=== PATIENT | male | born 1975 | race Caucasian/White ===

== ENCOUNTER 2020-11-16 08:45 | Emergency (ER) | payer OTHER, SELFPAY ==
--- NOTE | 2020-11-16 08:46 | ED.SKABFB ---
HPI - Skin/Abscess/Foreign Bdy General Chief complaint: Skin/Abscess/Foreign Body Stated complaint: left hand sore not healing Time Seen by Provider: 11/16/20 09:44 Source: patient and RN notes reviewed Mode of arrival: ambulatory Limitations: no limitations History of Present Illness HPI narrative: 45-year male with a history of rheumatoid arthritis with concern for a wound that is not healing. Reports 2 weeks ago he hit the second digit of the left hand with a hammer causing a blister. Reports the blister began to heal and then he accidentally hit the blister again while working causing it to split open. Reports since then is beginning larger, redder, painful. Reports he has been keeping it covered with antibiotic ointment and a Band-Aid. He denies decreased strength, sensation, range of motion in the digit. MD complaint: other (Wound) Related Data Home Medications Medication Instructions Recorded Confirmed adalimumab [Humira Pen] See Rx Instructions .ROUTE .COMPLEX 08/05/19 11/16/20 methotrexate 2.5 mg/mL oral See Rx Instructions .ROUTE .COMPLEX 08/25/19 11/16/20 solution folic acid 1 mg PO DAILY 11/16/20 11/16/20 Allergies Allergy/AdvReac Type Severity Reaction Status Date / Time cranberry Allergy Unknown HIVES Verified 11/16/20 09:36 Review of Systems Review of Systems: Narrative: CONSTITUTIONAL: Denies malaise, chills, sweats, or fever. CARDIOVASCULAR: Denies chest pain, palpitations, or edema. RESPIRATORY: Denies cough or dyspnea. SKIN: Reports a wound on the second digit of his left hand is not healing. MUSCULOSKELETAL: Denies myalgia. Denies musculoskeletal pain NEUROLOGIC: Denies numbness, weakness All systems reviewed & are unremarkable except as noted in HPI and below PMFSH Past Medical History Medical History (Updated 11/16/20 @ 09:52 by Rose Prince NP) Immunocompromised Rheumatoid arthritis Family History Family History Father Family history of alcoholism Grandparent Diabetes mellitus Social History Social History (Updated 10/18/20 @ 09:17 by Amanda Mckoy MA) Smoking packs per day: 1 Smoking cigarettes per day: 20.0 Years smoked: 22 Smoking pack-years: 22.00 Smoking status: Former smoker Tobacco type: cigarettes Second hand tobacco smoke exposure: No Smoking end date: 07/14/14 Alcohol intake: current Drinks per week: 9 Substance use: never Substance use type: does not use Gender identity (if verbalized by the patient): Male Comments At time of signature, agree with nursing past medical, surgical, social and family history. There is no relevant family history pertinent to the presenting complaint Exam Narrative: Exam Narrative: GENERAL: Well-appearing, well-nourished, and in no acute distress. HEAD: Normocephalic, atraumatic. EYES: PERRLA, conjunctivae clear, and EOMI. ENT: Mucous membranes moist. Oropharynx without edema, erythema or lesions. NECK: Supple. No lymphadenopathy CHEST: Clear to auscultation. No respiratory distress. HEART: Regular rate and rhythm. SKIN: Warm, dry. 2 cm diameter raised wound noted to the dorsal aspect of the second digit of left hand between the PIP and MIP joints with beefy red tissue bed, no surrounding erythema, edema, induration NEURO: Alert and oriented x3. PSYCH: Normal mood and affect Course Course Emergency Course: Patient is aware of diagnosis, understands and agrees to treatment plan. Anticipatory guidance given. Patient agrees to follow-up as directed and is aware of reasons to seek care at the emergency department. Portions of this record may have been created with voice recognition software Vital Signs Vital signs: Vital Signs Temperature 97.7 F 11/16/20 09:04 Pulse Rate 62 11/16/20 09:04 Respiratory Rate 16 11/16/20 09:04 Blood Pressure 153/76 H 11/16/20 09:04 Pulse Oximetry 100 11/16/20 09:04 Temperature 97.7 F 0
[2020-11-16 09:04] VITALS: BP 153/76; PULSE 62; RESP 16; TEMP 36.5; O2SAT 100
== END 2020-11-16 10:02 | disposition home or self-care (01) ==
PROVIDERS: Emergency Provider Nurse Practitioner; PCP Family Medicine
DX: S61.201A Unspecified open wound of left index finger without damage to nail, initial encounter (principal); W27.8XXA Contact with other nonpowered hand tool, initial encounter; L03.012 Cellulitis of left finger; Z87.891 Personal history of nicotine dependence
CPT/HCPCS: 99213; G0463

== ENCOUNTER 2021-02-06 13:32 | Emergency (ER) | payer OTHER, SELFPAY ==
--- NOTE | 2021-02-06 13:40 | ED.LOWEXIN ---
HPI - Extremity Injury (Lower) General Chief Complaint: Extremity Injury, Lower Stated Complaint: Possible injury to right Knee Time Seen by Provider: 02/06/21 13:41 Source: patient and RN notes reviewed History of Present Illness HPI Narrative: Patient is a 45-year-old male who presents the urgent care with complaints of right knee pain. 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 Patient states pain is worse with any movement but not necessarily exacerbated with weightbearing. Patient states has been taking [id number] medication for pain and wearing a brace to the knee. Denies of any known trauma or injury. No other acute complaints. No acute distress noted. Patient aware of the plan of care. Some parts of this dictation were generated by voice recognition software and may contain typographical and/or grammatical inaccuracies. Related Data Home Medications Medication Instructions Recorded Confirmed adalimumab [Humira Pen] See Rx Instructions .ROUTE .COMPLEX 08/05/19 11/16/20 methotrexate 2.5 mg/mL oral See Rx Instructions .ROUTE .COMPLEX 08/25/19 11/16/20 solution folic acid 1 mg PO DAILY 11/16/20 11/16/20 Allergies Allergy/AdvReac Type Severity Reaction Status Date / Time cranberry Allergy Unknown HIVES Verified 02/06/21 13:46 Review of Systems Review of Systems: Narrative: CONSTITUTIONAL: Denies fever, chills, or sweats. EYES: Denies visual changes, redness, or discharge. ENT: Denies rhinorrhea, congestion, sore throat, or otalgia. CARDIOVASCULAR: Denies chest pain, palpitations, or edema. RESPIRATORY: Denies cough or dyspnea. GASTROINTESTINAL: Denies abdominal pain, nausea, vomiting, or diarrhea. GENITOURINARY: Denies dysuria or hematuria. SKIN: Denies rash or itching. MUSCULOSKELETAL: Reports of right knee pain NEUROLOGIC: Denies headache, numbness, or weakness. All other systems reviewed are negative, except as documented in HPI. [facility] Past Medical History Medical History (Updated 02/06/21 @ 13:58 by GERONIMO Pastor) Immunocompromised Rheumatoid arthritis Family History Family History Father Family history of alcoholism Grandparent Diabetes mellitus Social History Social History (Updated 10/18/20 @ 09:17 by Amanda Mckoy MA) Smoking packs per day: 1 Smoking cigarettes per day: 20.0 Years smoked: 22 Smoking pack-years: 22.00 Smoking status: Former smoker Tobacco type: cigarettes Second hand tobacco smoke exposure: No Smoking end date: 07/14/14 Alcohol intake: current Drinks per week: 9 Substance use: never Substance use type: does not use Gender identity (if verbalized by the patient): Male Comments At the time of my signature, I reviewed and agree with the nursing past medical, surgical, social, and family history. There is no relevant family history pertinent to the patient complaint. Exam Narrative: Exam Narrative: GENERAL: This is a well-nourished, well-developed patient, in no apparent distress. HEAD: normocephalic, atraumatic. EYES: PERRL. Sclera clear/white. Vision is grossly intact. EARS: External ears normal NOSE: External nose normal with no obvious nasal discharge, nares without redness, no rhinorrhea. THROAT: Mucous membranes moist NECK: Neck supple CARDIOVASCULAR: Regular rate and rhythm without murmurs, gallops, or rubs. RESPIRATORY: Clear to auscultation. Breath sounds equal bilaterally. No wheezes, rales, or rhonchi. SKIN: warm, intact with no suspicious lesions or rash, good texture and turgor. NEURO: awake, alert, and oriented to person, place and time. There were no obvious focal neurologic abnormalities. EXTREMITIES: Very mild edema without ecchymosis or erythema noted to the lateral right knee with mild lateral anterior joint tenderness. Positive anterior drawe
[2021-02-06 13:42] VITALS: BP 141/89; PULSE 64; RESP 18; TEMP 37.2; O2SAT 100
== END 2021-02-06 14:00 | disposition home or self-care (01) ==
PROVIDERS: Emergency Provider Nurse Practitioner Family; PCP Family Medicine
DX: M25.561 Pain in right knee (principal); Z87.891 Personal history of nicotine dependence; M06.9 Rheumatoid arthritis, unspecified
CPT/HCPCS: 99213; G0463

== ENCOUNTER 2025-01-21 00:24 | Day surgery (SDC) | payer OTHER, SELFPAY ==
[2025-01-06 10:32] VITALS: BMI 25.0
--- OUTSIDE RECORDS SUMMARY | 2025-01-21 00:26 | XMS_ITS | Clinical Summary ---
Author Organization [id number] Address [address] [place] [phone] Phone Care Team Providers Care Energy Projects Lead Name Role Phone Sohail Lopez MD Primary Care Provider Quinton Church MD Unavailable [phone] Allergies Active Allergy Reactions Criticality Noted Date Comments Vitamin C-Vitamin E Unknown 07/31/2018 Medications naproxen (NAPROSYN) 500 mg tablet Take 1 tablet (500 mg total) by mouth 2 (two) times a day as needed for pain 60 tablet 07/09/2024 Active folic acid (FOLVITE) 1 mg tablet Take 1 tablet (1,000 mcg total) by mouth daily 90 tablet 1 09/13/2024 Active methotrexate 2.5 mg tablet TAKE 8 TABLETS BY MOUTH EVERY 7 DAYS 96 tablet 1 11/01/2024 Active Hyrimoz,CF, Pen 40 mg/0.4 mL pen injector INJECT 1 PEN UNDER THE SKIN EVERY 14 DAYS 2 mL 3 12/08/2024 Active Active Problems Problem Noted Date Diagnosed Date Pain of both elbows 05/04/2021 Assessment & Plan (05/04/2021 11:50 AM CDT): Suspect medial epicondylitis. He notes a h/o lateral epicondylitis and has epicondyle bands at home, will start using these. Recommend rest as able, ice in the evenings after work, and Vimovo as above. He will call if not improving. Vaccine counseling 08/04/2020 Assessment & Plan (02/02/2021 11:03 AM CDT): Advised patient to reconsider getting a Covid19 vaccine Assessment & Plan (08/04/2020 12:44 PM POPULATION HEALTH COACH): Advised patient to reconsider getting a flu vaccine as well as a Covid19 vaccine Encounter for long-term current use of medicatio n 09/17/2018 Assessment & Plan (12/24/2024 8:48 AM CDT): Hepatitis negative 2019 Continue routine lab monitoring Assessment & Plan (08/25/2024 3:33 PM POPULATION HEALTH COACH): Hepatitis negative 2019 Continue routine lab monitoring Assessment & Plan (04/22/2024 9:37 AM CDT): Hepatitis negative 2019 Continue routine lab monitoring Assessment & Plan (12/26/2023 9:52 AM CDT): Hepatitis negative 2019 Continue routine lab monitoring Assessment & Plan (09/04/2023 4:45 PM POPULATION HEALTH COACH): Hepatitis negative 2019 Continue routine lab monitoring Assessment & Plan (04/24/2023 3:08 PM CDT): Hepatitis negative 2019 Continue routine lab monitoring Assessment & Plan (12/19/2022 2:54 PM CDT): Hepatitis negative 2019 Continue routine lab monitoring Assessment & Plan (08/22/2022 4:38 PM POPULATION HEALTH COACH): Hepatitis negative 2019 Continue routine lab monitoring Assessment & Plan (04/19/2022 10:28 AM CDT): Hepatitis negative 2019 Continue routine lab monitoring Assessment & Plan (01/18/2022 9:02 AM CDT): Hepatitis negative 2019 Continue routine lab monitoring Assessment & Plan (11/02/2021 8:44 AM CDT): Hepatitis negative 2019 Continue routine lab monitoring Assessment & Plan (08/02/2021 4:07 PM POPULATION HEALTH COACH): Hepatitis negative 2019 Continue routine lab monitoring Assessment & Plan (05/03/2021 1:05 PM CDT): Hepatitis negative 2019 Continue routine lab monitoring Assessment & Plan (02/01/2021 3:09 PM CDT): Hepatitis negative 2019 Continue routine lab monitoring Assessment & Plan (11/03/2020 9:45 AM CDT): Hepatitis negative 2019 Continue routine lab monitoring Assessment & Plan (08/03/2020 8:46 AM POPULATION HEALTH COACH): Hepatitis negative 2019 Continue routine lab monitoring Assessment & Plan (05/04/2020 4:37 PM CDT): Hepatitis negative 2019 Continue routine lab monitoring Assessment & Plan (02/04/2020 1:14 PM CDT): Hepatitis negative 2019 Continue routine lab monitoring Assessment & Plan (11/04/2019 1:30 PM CDT): Hepatitis negative 2019 Continue routine lab monitoring Assessment & Plan (06/21/2019 1:07 PM POPULATION HEALTH COACH): Hepatitis negative 2019 Continue routine lab monitoring Assessment & Plan (04/08/2019 5:39 PM CDT): Hepatitis negative 2019 Continue routine lab monitoring Assessment & Plan (01/21/2019 12:57 PM CDT): Hepatitis negative 2019 Continue routine lab monitoring Assessment & Plan (10/21/2018 4:40 PM CDT): Hepatitis negative 2019 Continue routine lab monitoring Assessment & Plan (09/17/2018 1:37 PM POPULATION HEALTH COACH): Hepatitis negative 2019 Continue routine lab monitoring Rheumatoid arthritis of mult iple sites with negative rheumatoid factor 07/31/2018 Overview (09/30/2019): Labs 07/31/18 AVISE: +INDERJIT 1:160 dense fine speckled, anti-carbamylated IgG (31) CRP and ESR elevated, 50.5 and 43 respectively Xrays 08/04/18 XR R hand - mild arthritic changes 2nd DIP XR L hand - unremarkable XR SI joints - unremarkable XR L-spine - mild to moderate degenerative endplate changes throughout the lumbar spine and mild to moderate degenerative facet joint changes XR R ankle - small spur formation from medial malleolus, small partially detached posterior calcaneal spur near the Achilles insertion, small spur along dorsal aspect of the intertarsal region XR R shoulder - unremarkable XR L knee - very mild OA medial and lateral joint spaces, question of joint effusion Ultrasound 08/04/18 Marked effusion and power doppler in the volar 1st MCP joint and flexor tendon with grade 3 effusion and grade 3 power doppler on examination which will have to be correlated clinically. Grade 2 effusion in the dorsal 1st MCP, radial/scaphoid joint, and 2nd PIP joint. Grade 1 effusion and grade 1 power doppler in the wrist. Grade 1 effusion in the 3rd and 5th MCP joint. Moderate synovial thickening in the wrist, 3rd MCP, and 2nd PIP joints. Mild synovial thickening in the 2nd MCP and 3rd PIP joints Medication history MTX started 08/2018 IM triamcinolone given 01/2019 Humira started 01/2019 Assessment & Plan (12/24/2024 8:48 AM CDT): Cdai in remission. Will continue methotrexate 20 mg po weekly with folic acid daily and adalimumab 40 mg SQ every 2 weeks with naproxen prn. Labs today as below. Follow up in 4 months or sooner as needed. Assessment & Plan (08/25/2024 3:32 PM POPULATION HEALTH COACH): Cdai in remission. Will continue methotrexate 20 mg po weekly with folic acid daily and adalimumab 40 mg SQ every 2 weeks with naproxen prn. Labs today as below. Follow up in 4 months or sooner as needed. Assessment & Plan (04/22/2024 9:37 AM CDT): Cdai in remission. Will continue methotrexate 20 mg po weekly with folic acid daily and adalimumab 40 mg SQ every 2 weeks with naproxen prn. Labs today as below. Follow up in 4 months or sooner as needed. Assessment & Plan (12/26/2023 12:28 PM CDT): Cdai in remission. Will continue methotrexate 20 mg po weekly with folic acid daily and adalimumab 40 mg SQ every 2 weeks with naproxen prn. Labs today as below. Follow up in 4 months or sooner as needed. Assessment & Plan (09/05/2023 12:12 PM POPULATION HEALTH COACH): Cdai in remission. Remains stable. Will continue methotrexate 20 mg po weekly with folic acid daily and adalimumab 40 mg SQ every 2 weeks with naproxen prn. Will check benefits for Hyrimoz and provided samples today. Labs today as below. Follow up in 4 months or sooner as needed. Assessment & Plan (04/25/2023 11:08 AM CDT): Cdai in remission. Remains stable. Will continue methotrexate 20 mg po weekly with folic acid daily and Humira 40 mg SQ every 2 weeks with naproxen prn. Had labs drawn yesterday, he will forward the report. Follow up in 4 months or sooner as needed. Assessment & Plan (12/20/2022 11:21 AM CDT): Cdai in remission. Overall feels largely stable. Will continue methotrexate 20 mg po weekly with folic acid daily and Humira 40 mg SQ every 2 weeks with naproxen prn. Recheck labs today. Follow up in 4 months or sooner as needed. Assessment & Plan (08/23/2022 12:33 PM POPULATION HEALTH COACH): Low cdai. Overall feels largely stable. Will continue methotrexate 20 mg po weekly with folic acid daily and Humira 40 mg SQ every 2 weeks with naproxen prn. Recheck labs today. Follow up in 4 months or sooner as needed. Assessment & Plan (04/19/2022 3:14 PM CDT): cdai in remission. Overall feels largely stable. Will continue methotrexate 20 mg po weekly with folic acid daily and Humira 40 mg SQ every 2 weeks with naproxen prn. Recheck labs today. Follow up in 4 months or sooner as needed. Assessment & Plan (01/18/2022 12:15 PM CDT): cdai in remission. Overall feels largely stable. Will continue methotrexate 20 mg po weekly with folic acid daily and Humira 40 mg SQ every 2 weeks with naproxen prn. Recheck labs today. Follow up in 3 months or sooner as needed. Assessment & Plan (11/02/2021 12:53 PM CDT): Low cdai. Overall feels largely stable. Will continue methotrexate 20 mg po weekly with folic acid daily and Humira 40 mg SQ every 2 weeks with naproxen prn. Recheck labs today. Follow up in 3 months or sooner as needed. Assessment & Plan (08/03/2021 12:37 PM POPULATION HEALTH COACH): cdai = 16, moderate and increased from prior. For the last couple years has been very stable on current regimen, now with slight increase in symptoms and synovitis for the last several months. He would prefer to change regimen at present; however, discussed that if he has persistent synovitis like this, then would recommend considering a change from Humira to Enbrel, he defers this for now. Will continue methotrexate 20 mg po weekly with folic acid daily and Humira 40 mg SQ every 2 weeks with Vimovo prn. Recheck labs today. Follow up in 3 months or sooner as needed. Assessment & Plan (05/04/2021 11:49 AM CDT): cdai = 13. For the last couple years has been very stable on current regimen, now with slight flare. He would prefer to limit additional intervention. At this time recommend that he take the Vimovo consistently BID for the next week or two to see if this helps, if not he will call. Otherwise, will continue methotrexate 20 mg po weekly with folic acid daily and Humira 40 mg SQ every 2 weeks with Recheck labs today. Follow up in 3 months or sooner as needed. Assessment & Plan (02/02/2021 11:04 AM CDT): Low cdai. Overall feels improved and stable in the last three months. Will continue methotrexate 20 mg po weekly with folic acid daily and Humira 40 mg SQ every 2 weeks with Vimovo prn for flares. Recheck labs today. Follow up in 3 months or sooner as needed. Assessment & Plan (11/03/2020 12:48 PM CDT): Low cdai. Increased joint pain in the last 3 months which he attributes to work and weather, does not feel that any change in treatment is warranted. Will continue methotrexate 20 mg po weekly with folic acid daily and Humira 40 mg SQ every 2 weeks with Vimovo prn for flares. Recheck labs today. Follow up in 3 months or sooner as needed. Recommend Covid19 vaccination. Assessment & Plan (08/03/2020 8:46 AM POPULATION HEALTH COACH): Low cdai. Continue methotrexate 20 mg po weekly with folic acid daily and Humira 40 mg SQ every 2 weeks. Vimovo prn for flares. Recheck labs today. Follow up in 3 months or sooner as needed. Recommended flu vaccine, pt declined. Assessment & Plan (05/05/2020 12:51 PM CDT): Low cdai. Continue methotrexate 20 mg po weekly with folic acid daily and Humira 40 mg SQ every 2 weeks. Vimovo prn for flares. Recheck labs today. Follow up in 3 months or sooner as needed. Recommended flu vaccine, pt declined. Assessment & Plan (02/04/2020 1:14 PM CDT): Low cdai. Continue methotrexate 20 mg po weekly with folic acid daily and Humira 40 mg SQ every 2 weeks. Vimovo prn for flares. Recheck labs today. Follow up in 3 months or sooner as needed. Assessment & Plan (11/04/2019 1:55 PM CDT): Low cdai. Continue methotrexate 20 mg po weekly with folic acid daily and Humira 40 mg SQ every 2 weeks. Vimovo prn for flares. Recheck labs today. Follow up in 3 months or sooner as needed. Assessment & Plan (07/02/2019 12:08 PM POPULATION HEALTH COACH): Low cdai. Continue methotrexate 20 mg po weekly with folic acid daily and Humira 40 mg SQ every 2 weeks. Recheck labs today. Follow up in 3 months or sooner as needed. Assessment & Plan (04/09/2019 12:04 PM CDT): Low cdai Continue methotrexate 20 mg po weekly with folic acid daily and Humira 40 mg SQ every 2 weeks. Recheck labs today. Follow up in 3 months or sooner as needed. Assessment & Plan (01/22/2019 1:06 PM CDT): +INDERJIT, anti-carbamylated Ab, and ultrasound with mild to marked inflammatory changes. High cdai by exam today with several swollen and tender joints. Has been on methotrexate 20 mg weekly x4 months without any improvement in his joint complaints. At this time will check benefits for Humira. Quantiferon gold today. Continue methotrexate 20 mg po weekly with folic acid daily. Due to burden of disease will give patient a triamcinolone injection. Patient made aware of SE of triamcinolone injection including but not limited to HTN, increase blood glucose and osteopenia with skilled nursing use of steroids. If pain flares then will consider prednisone 10 mg daily to bridge to effect of Humira. Recheck labs today. Follow up in 2 months or sooner as needed. Assessment & Plan (10/23/2018 12:09 PM CDT): 42yoM with pain in his R ankle, L knee, B hips, R shoulder, and occasional low back pain. Reports moderate relief with prednisone 20 mg daily x7 days. Workup revealed a +INDERJIT, anti-carbamylated Ab, and ultrasound with mild to marked inflammatory changes. Moderate cdai by exam today with more tender than swollen joints. Continue methotrexate to 20 mg po weekly with folic acid daily and allow more time for effect. Pt reports intolerance to ibuprofen due to GI upset, samples of Vimovo given last visit were tolerated and provided relief, taken only prn. Rx Vimovo sent. Overall he states that he wants to limit any NSAIDs or any further steroids as he wants to be able to better differentiate the effect of the methotrexate. Recheck labs today. Follow up in 3 months or sooner as needed. Assessment & Plan (09/18/2018 12:45 PM POPULATION HEALTH COACH): 42yoM with pain in his R ankle, L knee, B hips, R shoulder, and occasional low back pain. Reports moderate relief with prednisone 20 mg daily x7 days. Workup revealed a +INDERJIT, anti-carbamylated Ab, and ultrasound with mild to marked inflammatory changes. Moderate cdai by exam today with more tender than swollen joints. Tolerating methotrexate 12.5 mg po weekly with folic acid 1 mg daily for 1 month. Will increase methotrexate to 20 mg po weekly, continue folic acid. Pt reports intolerance to ibuprofen due to GI upset, samples of Vimovo given that he could try if needed. Overall he states that he wants to limit any NSAIDs or any further steroids as he wants to be able to better differentiate the effect of the methotrexate. Recheck labs today. Follow up in 1 month or sooner as needed. Assessment & Plan (08/21/2018 5:07 PM POPULATION HEALTH COACH): 42yoM with pain in his R ankle, L knee, B hips, R shoulder, and occasional low back pain. Reports moderate relief with prednisone 20 mg daily x7 days. Workup revealed a +INDERJIT, anti-carbamylated Ab, and ultrasound with mild to marked inflammatory changes. Suspect seronegative RA, recommend beginning methotrexate 12.5 mg po weekly with folic acid 1 mg daily. Reviewed need to limit EtOH intake while taking this medication and that he will require regular lab monitoring to watch liver function. Plan for follow up in 1 month to reassess, will likely increase methotrexate to 20 mg po weekly at that time if tolerating without adverse effect and labs remain stable. Assessment & Plan (07/31/2018 12:59 PM POPULATION HEALTH COACH): 42yoM presents for evaluation of multiple painful joints. Has experienced pain in his R ankle, L knee, B hips, R shoulder, and occasional low back pain. Exacerbating factors are not consistent, at times worse during inactivity but at others worse with activity. He has morning stiffness which at times persists for <1 hour but on other days lasts all day. Denies other symptoms concerning for CTD. On exam he has several tender joints including R ankle, L knee, and R shoulder as well as a few swollen joints. Pain in bilateral hips with int/ext rotation. At this time cannot rule out an inflammatory arthritis, given large joint involvement favor spondyloarthritis. To fully evaluate will obtain appropriate serologies, xrays, and ultrasound with plan for follow up in 2 weeks to review results and to discuss treatment options. Rx given for prednisone 20 mg x7 days which he will not begin until after he has had the ultrasound done. Fatigue 07/31/2018 Assessment & Plan (07/31/2018 1:00 PM POPULATION HEALTH COACH): Significant fatigue. +Snoring and believes she has witnessed apneic events. Recommend sleep study for evaluation. Will also evaluate for possible autoimmune disease which can contribute to fatigue, workup as above. Check hepatitis labs. Encounters Date Type Department Care Team Description 01/17/2025 Telephone [facility] [address] [place] [phone] Elizabeth Carter 12/27/2024 Results Follow-Up [facility] [address] [place] [phone] Julieta Ambrose PA CBC with auto differential, Comprehensive metabolic panel 12/24/2024 11:00 AM CDT Office Visit [facility] [address] [place] [phone] Julieta Ambrose PA Rheumatoid arthritis of multiple sites with negative rheumatoid factor (HCC) (Primary Dx); Encounter for long-term current use of medication from Last 3 Months Social History Tobacco Use Types Packs/Day Years Used Date Smoking Tobacco: Never Assessed Sex and Gender Information Value Date Recorded Sex Assigned at Not on file Legal Sex Male 9:34 AM POPULATION HEALTH COACH Gender Identity Male 10/27/2020 11:52 AM CDT Sexual Orientation Straight 10/27/2020 11 :52 AM CDT Obstetrics History Last Filed Vital Signs Vital Sign Reading Time Taken Comments Blood Pressure 140/70 08/27/2024 10:57 AM POPULATION HEALTH COACH Pulse 69 08/27/2024 10:57 AM POPULATION HEALTH COACH Temperature 36.6 C (97.8 F) 08/03/2021 11:04 AM POPULATION HEALTH COACH Respiratory Rate - - Oxygen Saturation 98% 08/27/2024 10:57 AM POPULATION HEALTH COACH Inhaled Oxygen Concentration - - Weight 89.9 kg (198 lb 3.2 oz) 12/24/2024 11:02 AM CDT Height 188 cm (6' 2) 08/27/2024 10:57 AM POPULATION HEALTH COACH Body Mass Index 25.45 08/27/2024 10:57 AM POPULATION HEALTH COACH Plan of Treatment Health Maintenance Due Date Last Done Comments Colon Cancer Screening-Colonoscopy 1974 Depression Screening 1974 Prostate Cancer Screening-PSA 1974 DTaP/Tdap/Td Vaccine (1 - Tdap) 1985 Hepatitis B Screening 1992 Regular Well Visit/Exam 18-64 1992 Pneumococcal vaccine <65 (1 of 2 - PCV) 1993 Zoster Vaccine (1 of 2) 1993 Covid-19 Vaccine (2 - Moderna risk series) 08/21/2021 07/24/2021 Influenza Vaccine (#1) 2025 Hepatitis C Screening Completed 07/31/2018 Procedures Procedure Name Priority Date/Time Associated Diagnosis Comments COMPREHENSIVE METABOLIC PANEL Routine 12/24/2024 11:36 AM CDT Encounter for long-term current use of medication CBC WITH AUTO DIFFERENTIAL Routine 12/24/2024 11:36 AM CDT Encounter for long-term current use of medication HEPATITIS C ANTIBODY Routine 07/31/2018 1:03 PM POPULATION HEALTH COACH Polyarthralgia Fatigue, unspecified type from Last 3 Months or Most Recently Relevant to Health Maintenance Results * CBC with auto differential (12/24/2024 11:36 AM CDT) WBC 6.1 3.8 - 10.8 Thousand/u L [facility] RBC, POC 4.86 4.20 - 5.80 Million/uL [facility] Hgb 15.2 13.2 - 17.1 g/dL [facility] Hct 46.8 38.5 - 50.0 % [facility] MCV 96.3 80.0 - 100.0 fL [facility] MCH 31.3 27.0 - 33.0 pg [facility] MCHC 32.5 32.0 - 36.0 g/dL [facility] Comment: For adults, a slight decrease in the calculated MCHC value (in the range of 30 to 32 g/dL) is most likely not clinically significant; however, it should be interpreted with caution in correlation with other red cell parameters and the patient's clinical condition. Rdw 13.2 11.0 - 15.0 % [facility] Platelets 204 140 - 400 Thousand/u L [facility] MPV 10.4 7.5 - 12.5 fL [facility] Neutrophils, abs 3,550 1,500 - 7,800 cells/uL [facility] Lymphocytes, abs 1,934 850 - 3,900 cells/uL [facility] Monocyte abs 476 200 - 950 cells/uL [facility] Eosinophils, abs 92 15 - 500 cells/uL [facility] Basophils, abs 49 0 - 200 cells/uL [facility] Neutrophils 58.2 % [facility] Lymphocyte pct 31.7 % [facility] Monocytes 7.8 % [facility] Eosinophils 1.5 % [facility] Basophils 0.8 % [facility] Blood 12/24/2024 11:3 6 AM CDT 12/24/2024 11:37 AM CDT us Julieta BROTHERS LAB BLOOD ORDERABLES Shaneka l Result [facility] [id number] [phone] * (ABNORMAL) Comprehensive metabolic panel (12/24/2024 11:36 AM CDT) [facility] Glucose 92 65 - 99 mg/dL [facility] Comment: Fasting reference interval BUN 26(H) 7 - 25 mg/dL [facility] Creatinine 1.05 0.70 - 1.30 mg/dL [facility] eGFR 86 > OR = 60 mL/min/1.7 3m2 [facility] BUN/creat ratio 25(H) 6 - 22 (calc) [facility] Sodium 139 135 - 146 mmol/L [facility] Potassium, pl 4.6 3.5 - 5.3 mmol/L [facility] Chloride 102 98 - 110 mmol/L [facility] CO2 31 20 - 32 mmol/L [facility] Calcium 9.7 8.6 - 10.3 mg/dL [facility] Protein, sr 6.9 6.1 - 8.1 g/dL [facility] Albumin 4.6 3.6 - 5.1 g/dL [facility] GLOBULIN 2.3 1.9 - 3.7 g/dL (calc) [facility] Alb/glob ratio 2.0 1.0 - 2.5 (calc) [facility] Bilirubin, total 0.9 0.2 - 1.2 mg/dL [facility] Alk phos 52 35 - 144 U/L [facility] AST 15 10 - 35 U/L [facility] ALT (SGPT) 20 9 - 46 U/L [facility] Blood 12/24/2024 11:3 6 AM CDT 12/24/2024 11:37 AM CDT Julieta BROTHERS LAB BLOOD ORDERABLES Shaneka l Result [facility] [address] [place] [phone] * Hepatitis C antibody (07/31/2018 1:03 PM POPULATION HEALTH COACH) Hep C Ab NON-REACTI VE NON-REACTI VE [facility] SIGNAL TO CUT-OFF 0.02 <1.00 [facility] [place] Blood specimen (specimen) 07/31/2018 1:03 PM POPULATION HEALTH COACH 07/31/2018 1:04 PM POPULATION HEALTH COACH Narrative [facility] - 08/03/2018 5:34 PM POPULATION HEALTH COACH FASTING:UNKNOWN FASTING: UNKNOWN Resulting Agency Comment Performing Organization Information: Site ID: [id number] Name: [facility] Address: [id number] [phone] Director: Gagan New D.O., MPH Julieta BROTHERS LAB MICROBIOLOGY - GENERA L ORDERABLES Final Result [facility] from Last 3 Months or Most Recently Relevant to Health Maintenance Insurance [facility] Care Teams Energy Projects Lead Relationship Specialty Start Date End Date Sohail Lopez MD [address] [place] [address] PCP - General Family Medicine 07/22/18 Quinton Church MD [address] [place] [address] Consulting Physician Rheumatology 07/22/18
--- OUTSIDE RECORDS SUMMARY | 2025-01-21 00:26 | XMS_ITS | Referral Summary ---
Author Organization [place] [id number] Address [address] [place] [id number] Phone Care Team Providers Care Video Intern Name Role Phone Sohail Lopez MD Primary Care Provider Quinton Church MD Unavailable [phone] Encounters Date Type Department Care Team Description 01/17/2025 Telephone [facility] [address] [place] [phone] Elizabeth Carter-Gina Gutierrez 12/27/2024 Results Follow-Up [facility] [address] [place] [phone] Julieta Ambrose PA CBC with auto differential, Comprehensive metabolic panel 12/24/2024 11:00 AM CDT Office Visit [facility] [address] [place] [phone] Julieta Ambrose PA Rheumatoid arthritis of multiple sites with negative rheumatoid factor (HCC) (Primary Dx); Encounter for long-term current use of medication from Last 3 Months Allergies Active Allergy Reactions Criticality Noted Date [...] vaccine Assessment & Plan (08/04/2020 12:44 PM DEPENDENCY COUNSELOR): Advised patient to reconsider getting a flu vaccine as well as a Covid19 vaccine Encounter for long-term current use of medicatio n 09/17/2018 Assessment & Plan (12/24/2024 8:48 AM CDT): Hepatitis negative 2019 Continue routine lab monitoring Assessment & Plan (08/25/2024 3:33 PM DEPENDENCY COUNSELOR): Hepatitis negative 2019 Continue routine lab monitoring Assessment & Plan (04/22/2024 9:37 AM CDT): Hepatitis negative 2019 Continue routine lab monitoring Assessment & Plan (12/26/2023 9:52 AM CDT): Hepatitis negative 2019 Continue routine lab monitoring Assessment & Plan (09/04/2023 4:45 PM DEPENDENCY COUNSELOR): Hepatitis negative 2018 Continue routine lab monitoring Assessment & Plan (04/24/2023 3:08 PM CDT): Hepatitis negative 2019 Continue routine lab monitoring Assessment & Plan (12/19/2022 2:54 PM CDT): Hepatitis negative 2019 Continue routine lab monitoring Assessment & Plan (08/22/2022 4:38 PM DEPENDENCY COUNSELOR): Hepatitis negative 2019 Continue routine lab monitoring Assessment & Plan (04/19/2022 10:28 AM CDT): Hepatitis negative 2019 Continue routine lab monitoring Assessment & Plan (01/18/2022 9:02 AM CDT): Hepatitis negative 2019 Continue routine lab monitoring Assessment & Plan (11/02/2021 8:44 AM CDT): Hepatitis negative 2019 Continue routine lab monitoring Assessment & Plan (08/02/2021 4:07 PM DEPENDENCY COUNSELOR): Hepatitis negative 2019 Continue routine lab monitoring Assessment & Plan (05/03/2021 1:05 PM CDT): Hepatitis negative 2019 Continue routine lab monitoring Assessment & Plan (02/01/2021 3:09 PM CDT): Hepatitis negative 2019 Continue routine lab monitoring Assessment & Plan (11/03/2020 9:45 AM CDT): Hepatitis negative 2019 Continue routine lab monitoring Assessment & Plan (08/03/2020 8:46 AM DEPENDENCY COUNSELOR): Hepatitis negative 2019 Continue routine lab monitoring Assessment & Plan (05/04/2020 4:37 PM CDT): Hepatitis negative 2019 Continue routine lab monitoring Assessment & Plan (02/04/2020 1:14 PM CDT): Hepatitis negative 2019 Continue routine lab monitoring Assessment & Plan (11/04/2019 1:30 PM CDT): Hepatitis negative 2019 Continue routine lab monitoring Assessment & Plan (06/21/2019 1:07 PM DEPENDENCY COUNSELOR): Hepatitis negative 2019 Continue routine lab monitoring Assessment & Plan (04/08/2019 5:39 PM CDT): Hepatitis negative 2019 Continue routine lab monitoring Assessment & Plan (01/21/2019 12:57 PM CDT): Hepatitis negative 2019 Continue routine lab monitoring Assessment & Plan (10/21/2018 4:40 PM CDT): Hepatitis negative 2019 Continue routine lab monitoring Assessment & Plan (09/17/2018 1:37 PM DEPENDENCY COUNSELOR): Hepatitis negative 2018 Continue routine lab monitoring Rheumatoid arthritis of [facility] sites with negative rheumatoid factor 07/31/2018 Overview [...] needed. Assessment & Plan (08/25/2024 3:32 PM DEPENDENCY COUNSELOR): Cdai in remission. Will continue methotrexate 20 [...] needed. Assessment & Plan (09/05/2023 12:12 PM DEPENDENCY COUNSELOR): Cdai in remission. Remains stable. Will continue [...] needed. Assessment & Plan (08/23/2022 12:33 PM DEPENDENCY COUNSELOR): Low cdai. Overall feels largely stable. Will [...] needed. Assessment & Plan (08/03/2021 12:37 PM DEPENDENCY COUNSELOR): cdai = 16, moderate and increased from [...] vaccination. Assessment & Plan (08/03/2020 8:46 AM DEPENDENCY COUNSELOR): Low cdai. Continue methotrexate 20 mg po [...] needed. Assessment & Plan (07/02/2019 12:08 PM DEPENDENCY COUNSELOR): Low cdai. 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 If pain flares then [...] needed. Assessment & Plan (09/18/2018 12:45 PM DEPENDENCY COUNSELOR): 42yoM with pain in his R ankle, [...] needed. Assessment & Plan (08/21/2018 5:07 PM DEPENDENCY COUNSELOR): 42yoM with pain in his R ankle, [...] stable. Assessment & Plan (07/31/2018 12:59 PM DEPENDENCY COUNSELOR): 42yoM presents for evaluation of multiple painful [...] 07/31/2018 Assessment & Plan (07/31/2018 1:00 PM DEPENDENCY COUNSELOR): Significant fatigue. +Snoring and believes she has witnessed apneic events. Recommend sleep study for evaluation. Will also evaluate for possible autoimmune disease which can contribute to fatigue, workup as above. Check hepatitis labs. Social History Tobacco Use Types Packs/Day Years Used Date Smoking Tobacco: Never Assessed Sex and Gender Information Value Date Recorded Sex Assigned at Not on file Legal Sex Male 9:34 AM DEPENDENCY COUNSELOR Gender Identity Male 10/27/2020 11:52 AM CDT Sexual Orientation Straight 10/27/2020 11 :52 AM CDT Last Filed Vital Signs Vital Sign Reading Time Taken Comments Blood Pressure 140/70 08/27/2024 10:57 AM DEPENDENCY COUNSELOR Pulse 69 08/27/2024 10:57 AM DEPENDENCY COUNSELOR Temperature 36.6 C (97.8 F) 08/03/2021 11:04 AM DEPENDENCY COUNSELOR Respiratory Rate - - Oxygen Saturation 98% 08/27/2024 10:57 AM DEPENDENCY COUNSELOR Inhaled Oxygen Concentration - - Weight 89.9 kg (198 lb 3.2 oz) 12/24/2024 11:02 AM CDT Height 188 cm (6' 2) 08/27/2024 10:57 AM DEPENDENCY COUNSELOR Body Mass Index 25.45 08/27/2024 10:57 AM DEPENDENCY COUNSELOR Plan of Treatment Not on file Procedures Procedure Name Priority Date/Time Associated Diagnosis Comments COMPREHENSIVE METABOLIC PANEL Routine 12/24/2024 11:36 AM CDT Encounter for long-term current use of medication CBC WITH AUTO DIFFERENTIAL Routine 12/24/2024 11:36 AM CDT Encounter for long-term current use of medication HEPATITIS C ANTIBODY Routine 07/31/2018 1:03 PM DEPENDENCY COUNSELOR Polyarthralgia Fatigue, unspecified type from Last 3 [...] BLOOD ORDERABLES Shaneka l Result [facility] [address] [place] [address] * (ABNORMAL) Comprehensive metabolic panel (12/24/2024 11:36 AM CDT) Pathologist [facility] Glucose 92 65 - 99 mg/dL [facility] [...] [facility] B[facility] ORDERABLES Shaneka l Result Performing Organization Address [facility] de Phone Number [facility] [address] [place] [address] * Hepatitis C antibody (07/31/2018 1:03 PM DEPENDENCY COUNSELOR) Hep C Ab NON-REACTI VE NON-REACTI VE [facility] SIGNAL TO CUT-OFF 0.02 <1.00 [facility] Blood specimen (specimen) 07/31/2018 1:03 PM DEPENDENCY COUNSELOR 07/31/2018 1:04 PM DEPENDENCY COUNSELOR Narrative [facility] - 08/03/2018 5:34 PM DEPENDENCY COUNSELOR FASTING:UNKNOWN FASTING: UNKNOWN Resulting Agency Comment Performing Organization Information: Site ID: [place] Name: [facility] Address: [address] [place] [address] Director: Gagan New D.O., MPH [facility]at [facility] - GENERA L ORDERABLES Final Result Performing Organization Address [facility] Co de Phone Number [facility] [place] from Last 3 Months or Most Recently Relevant to Health Maintenance Insurance [facility] [facility] HMO Care Teams Video Intern Relationship Specialty Start Date End Date Sohail Lopez MD [address] [place] [address] PCP - General Family Medicine 07/22/18 Quinton Church MD [address] [place] [address] Consulting Physician Rheumatology 07/22/18
--- OUTSIDE RECORDS SUMMARY | 2025-01-21 00:26 | XMS_ITS | Encounter Summary ---
Author Organization [facility] Address [address] [place] [address] Phone Care Team Providers Care In Store Banker Name Role Phone Sohail Lopez MD Primary Care Provider Quinton Church MD Unavailable [phone] Encounter Details Date Type Department Care Team (Latest Contact Info) Description 12/27/2024 Results Follow-Up [facility] [address] [place] [phone] Julieta Ambrose PA [address] [place] [address] CBC with auto differential, Comprehensive metabolic panel Social History Tobacco Use Types Packs/Day Years Used Date Smoking Tobacco: Never Assessed Sex and Gender Information Value Date Recorded Sex Assigned at Not on file Legal Sex Male 9:34 AM TRAFFIC INSPECTOR Gender Identity Male 10/27/2020 11:52 AM CDT Sexual Orientation Straight 10/27/2020 11 :52 AM CDT documented as of this encounter Plan of Treatment Not on file documented as of this encounter Visit Diagnoses Not on filedocumented in this encounter Care Teams In Store Banker Relationship Specialty Start Date End Date Sohail Lopez MD [address] [address] PCP - General Family Medicine 07/22/18 Quinton Church MD [address] [place] [address] Consulting Physician Rheumatology 07/22/18 documented as of this encounter
[2025-01-21 07:16] VITALS: BP 120/71; PULSE 59; RESP 18; TEMP 36.6; O2SAT 99
[2025-01-21] MEDS: LACTATED RINGERS 1,000 ML 150 ML IV CONT (07:26)
--- NOTE | 2025-01-21 07:51 | P.PNAN_ITS ---
Anes - Initial Pre Proc Eval Procedure: Operation Date: 01/21/25 08:30 Proposed Procedures p Screening Colonoscopy - Suraj Han MD Date/Time: 01/21/25 07:51 Surgeon: Suraj Han MD Pre Op Diagnosis: screening malignant neoplasm of colon Patient Data Age: 49 Gender: M Height: 1.88 m Weight: 87.3 kg Last Vital Signs Temp 36.6 C 01/21/25 07:16 Pulse 59 L 01/21/25 07:16 Resp 18 01/21/25 07:16 BP 120/71 01/21/25 07:16 Pulse Ox 99 01/21/25 07:16 O2 Del Method Room Air 01/21/25 07:16 Allergies Allergy/AdvReac Type Severity Reaction Status Date / Time cranberry Allergy Unknown HIVES Verified 01/21/25 07:13 Home Medications ?Medication ?Instructions ?Recorded ?Confirmed ?Type methotrexate 2.5 mg/mL oral See Rx Instructions .Route .COMPLEX 08/25/19 01/21/25 History solution folic acid 1 mg tablet 1 mg PO DAILY 11/16/20 01/21/25 History adalimumab-adaz 40 mg/0.4 mL 40 mg subcut WEEKLY 01/06/25 01/21/25 History subcutaneous pen injector (Hyrimoz(CF) Pen) methotrexate sodium 2.5 mg tablet 2.5 mg PO DAILY 01/06/25 01/21/25 History Patient hx anesthesia problems: none Family hx anesthesia problems: none Results Review: All pre-operative results and documents have been reviewed as part of the pre- operative evaluation. [facility] Past Medical History Medical History POPEYE (obstructive sleep apnea) Immunocompromised Rheumatoid arthritis Family History Family History Father Family history of alcoholism Grandparent Diabetes mellitus Social History Social History Social History: Smoking packs per day: 1 Smoking cigarettes per day: 20.0 Years smoked: 22 Smoking pack-years: 22.00 Smoking status: Former smoker Tobacco type: cigarettes Second hand tobacco smoke exposure: No Smoking end date: 07/14/14 Alcohol intake: current Drinks per week: 3 Alcohol use details: Occasionally Substance use: never Substance use type: does not use Do You Feel Safe in your Home?: Yes Lack of Transportation: No Lack of Food: Never True Current Housing: I Have Housing Concerned About Future Housing: No Difficulty Paying Gas/Electric Bills: No Difficulty Paying for Meds: No Currently Unemployed: No Education: Don't Know Difficulty w/ Childcare or Family Care: No Living arrangements: with family Occupation/Education: occupation Gender identity (if verbalized by the patient): Male Sexual Orientation (if Verbalized by the Patient): Straight or Heterosexual Spiritual care concerns: No Anes - Eval Final PreProcedure Day of Procedure 01/21/25 07:51 Patient weight: normal Heart: regular rate and rhythm Lungs: clear to auscultation Airway: Mallampati scale class II Neurological: alert and oriented Last oral intake: >/= 8 hours ASA classification: III Emergent: no Anesthetic plan: proceed Anesthesia type and monitoring: general GIVS and standard monitoring Results Review: All pre-operative results and documents have been reviewed as part of the pre- operative evaluation. Informed Consent: The patient's anesthetic plan and its attendant risks and benefits were discussed with the patient/family/POA. Questions were solicited and answers provided to the satisfaction of the patient/family/POA.
--- NOTE | 2025-01-21 08:08 | PM.IMHP ---
H&P: HPI History of Present Illness Date/Time: 01/21/25 08:08 Chief Complaint: Screening colonoscopy Narrative: This is the patient's first colonoscopy. There are no GI symptoms and there is no family history of colorectal cancer. Review of Systems Review of Systems: All systems reviewed & are unremarkable except as noted in HPI and below PMFSH Past Medical History Medical History POPEYE (obstructive sleep apnea) Immunocompromised Rheumatoid arthritis Family History Family History Father Family history of alcoholism Grandparent Diabetes mellitus Social History Social History Social History: Smoking packs per day: 1 Smoking cigarettes per day: 20.0 Years smoked: 22 Smoking pack-years: 22.00 Smoking status: Former smoker Tobacco type: cigarettes Second hand tobacco smoke exposure: No Smoking end date: 07/14/14 Alcohol intake: current Drinks per week: 3 Alcohol use details: Occasionally Substance use: never Substance use type: does not use Do You Feel Safe in your Home?: Yes Lack of Transportation: No Lack of Food: Never True Current Housing: I Have Housing Concerned About Future Housing: No Difficulty Paying Gas/Electric Bills: No Difficulty Paying for Meds: No Currently Unemployed: No Education: Don't Know Difficulty w/ Childcare or Family Care: No Living arrangements: with family Occupation/Education: occupation Gender identity (if verbalized by the patient): Male Sexual Orientation (if Verbalized by the Patient): Straight or Heterosexual Spiritual care concerns: No Meds Home Medications and Allergies Home Medications ?Medication ?Instructions ?Recorded ?Confirmed ?Type methotrexate 2.5 mg/mL oral See Rx Instructions .Route .COMPLEX 08/25/19 01/21/25 History solution folic acid 1 mg tablet 1 mg PO DAILY 11/16/20 01/21/25 History adalimumab-adaz 40 mg/0.4 mL 40 mg subcut WEEKLY 01/06/25 01/21/25 History subcutaneous pen injector (Hyrimoz(CF) Pen) methotrexate sodium 2.5 mg tablet 2.5 mg PO DAILY 01/06/25 01/21/25 History Allergies Allergy/AdvReac Type Severity Reaction Status Date / Time cranberry Allergy Unknown HIVES Verified 01/21/25 07:13 Vital Signs Vital Signs - 24 hr 01/21/25 07:16 Temperature 97.8 F Pulse Rate 59 L Respiratory Rate 18 Blood Pressure 120/71 Pulse Oximetry 99 Oxygen Delivery Room Air Exam Const: General: cooperative and healthy appearing Resp: Effort & Inspection: normal respiratory effort and able to speak in complete sentences Auscultation: clear to auscultation bilaterally Cardio: Rate: regular rate Rhythm: regular rhythm GI: Inspection: normal to inspection GI Palp: No No hepatosplenomegaly present Auscultation: normal bowel sounds Rectal Exam: deferred Skin: General skin exam: normal color Psych: Appearance: grossly normal Mental Status: mental status grossly normal Assessment and Plan Assessment and plan (1) Encounter for screening colonoscopy: Code(s): Z12.11 - Encounter for screening for malignant neoplasm of colon Status: Acute Assessment and Plan: The patient is deemed a good candidate for the procedure. Consent signed. Will proceed.
[2025-01-21] MEDS: SIMETHICONE ORAL SUSPENSION 20 MG/0.3 ML 30 ML BOTTLE 0.6 ML IRRIGATION (08:23)
[2025-01-21 08:34] VITALS: BP 95/62; PULSE 53; RESP 17; O2SAT 100
[2025-01-21 08:44] VITALS: BP 113/71; PULSE 50; RESP 12; O2SAT 100
[2025-01-21 08:54] VITALS: BP 116/71; PULSE 47; RESP 18; O2SAT 100
== END 2025-01-21 09:01 | disposition home or self-care (01) ==
PROVIDERS: PCP Family Medicine; Visit Provider Internal Medicine Gastroenterology
PROC: 0DJD8ZZ Inspection of Lower Intestinal Tract, Via Natural or Artificial Opening Endoscopic (ICD-10-PCS; CPT 45378; principal; 2025-01-21 08:30)
DX: Z12.11 Encounter for screening for malignant neoplasm of colon (principal); K57.30 Diverticulosis of large intestine without perforation or abscess without bleeding; G47.33 Obstructive sleep apnea (adult) (pediatric); D84.9 Immunodeficiency, unspecified; M06.9 Rheumatoid arthritis, unspecified; Z79.620 Long term (current) use of immunosuppressive biologic; Z87.891 Personal history of nicotine dependence
CPT/HCPCS: 45378; J2003; J2704; J7120